=== PATIENT | female | born 1945 | race Caucasian/White ===

== ENCOUNTER 2023-11-27 10:19 | Outpatient (CLI) | payer MEDICARE, SELFPAY ==
[2023-11-27 18:24] LABS: Basophils Absolute Auto 0.1 K/mm3 (0.0-0.1); Basophils Percent Auto 0.9 % (0.2-1.2); Eosinophils Absolute Auto 0.3 K/mm3 (0-0.3); Eosinophils Percent Auto 4.3 % (0-4.4); Hematocrit 44.6 % (37.0-47.0); Hemoglobin 14.9 g/dL (12.0-15.0); Immature Granulocyte Absolute 0.02 K/mm3 (0.00-0.031); Immature Granulocyte Percent A 0.3 % (0-0.5); Lymphocytes Absolute Auto 2.26 K/mm3 (0.9-3.2); Lymphocytes Percent Auto 29.1 % (18.3-44.2); Mean Corpuscular HGB Conc 33.4 g/dl (32-36); Mean Corpuscular Hemoglobin 30.7 pg (26-34); Mean Corpuscular Volume 91.8 fl (80-100); Mean Platelet Volume 9.3 fl (7.4-10.4); Monocytes Absolute Auto 0.8 K/mm3 (0.1-0.6); Monocytes Percent Auto 10.3 % (2.6-8.5); Neutrophils Absolute Auto 4.3 K/mm3 (1.3-6.7); Neutrophils Percent Auto 55.1 % (45.5-73.1); Platelet Count Result 341 k/mm3 (150-375); Red Blood Count 4.86 M/mm3 (4.2-5.4); Red Cell Distribution Width 13.8 % (11.5-14.5); White Blood Count 7.8 K/mm3 (4.5-10.0)
[2023-11-27 19:07] LABS: Alanine Aminotransferase 10 U/L (6-35); Albumin Level 4.7 g/dL (3.5-5.1); Alkaline Phosphatase 118 U/L (38-126); Anion Gap 10 mmol/L (4-12); Aspartate Amino Transferase 50 U/L (14-36); Bilirubin,Total 0.5 mg/dL (0.2-1.3); Blood Urea Nitrogen 16 mg/dL (7-17); Calcium 9.3 mg/dL (8.4-10.2); Carbon Dioxide 26 mmol/L (22-30); Chloride 96 mmol/L (98-107); Cholesterol 155 mg/dL (0-200); Estimated Glomerular Filt Rate 48; Glucose 81 mg/dL (65-110); HDL Direct 47 mg/dL; Magnesium 2.1 mg/dL (1.6-2.3); Potassium 4.9 mmol/L (3.4-5.0); Sodium 132 mmol/L (137-145); Triglycerides 159 mg/dL (<150)
[2023-11-27 19:21] LABS: LDL Cholesterol Direct 60 mg/dL
[2023-11-27 20:11] LABS: Folic Acid 7.5 ng/mL (2.76->20)
== END 2023-11-27 10:20 | disposition home or self-care (01) ==
LOC: ANHBWCLAB 10:23
PROVIDERS: PCP Nurse Practitioner Adult Health; Visit Provider Nurse Practitioner Adult Health
DX: R25.1 Tremor, unspecified (principal); I10 Essential (primary) hypertension
CPT/HCPCS: 36415; 80053; 80061; 82607; 82746; 83735; 84443; 85025

== ENCOUNTER 2024-05-15 14:03 | Outpatient (CLI) | payer MEDICARE, SELFPAY ==
--- OUTSIDE RECORDS SUMMARY | 2024-05-15 15:01 | XMS_ITS | Encounter Summary ---
Author Organization [facility] Address [address] [place] [address] Phone Care Team Providers Care Radiation Protection Technician Name Role Phone Jesus Ricks MD Unavailable Reason for Visit * Reason Comments Medication Refill Encounter Details Date Type Department Care Team (Late st Contact Info) Description 04/17/2024 Refill [facility] [address] [place] [address] Molina Mccain MD [address] [place] [address] Medication Refill Social History Tobacco Use Types Packs/Day Years Used Date Smoking Tobacco: Every Day Cigarettes Smokeless Tobacco: Never Alcohol Use Standard Drinks/Week Comments Never 0 (1 standard drink = 0.6 oz pur e alcohol) Sexually Active Control Partners Comments Not Currently Comments No Sex and Gender Information Value Date Recorded Sex Assigned at Not on file Legal Sex Female 11:33 PM CDT Gender Identity Not on file Sexual Orientation Not on file documented as of this encounter Miscellaneous Notes * Telephone Encounter - Norma Rosa RN - 04/17/2024 3:44 PM CST PCP is no longer in this office. Pt has not been seen in over a year. No EFREM scheduled. No refills can be processed per lead provider. ING OPERATOR documented in this encounter Plan of Treatment Not on file documented as of this encounter Visit Diagnoses Diagnosis Hypothyroidism, unspecified type documented in this encounter Care Teams Radiation Protection Technician Relationship Specialty Start Date End Date Jesus Ricks MD [address] [place] [address] Consulting Physician Neurology 01/24/23 documented as of this encounter
--- OUTSIDE RECORDS SUMMARY | 2024-05-15 15:01 | XMS_ITS | Clinical Summary ---
Author Organization [facility] Address [address] [place] [id number] Care Team Providers Care Motor Winder Name Role Phone Unavailable Primary Care Provider Unavailabl e Social History Tobacco Use Types Packs/Day Years Used Date Smoking Tobacco: Never Assessed Comments Unknown Sex and Gender Information Value Date Recorded Sex Assigned at Not on file Legal Sex Female 7:52 PM CDT Gender Identity Not on file Sexual Orientation Not on file Plan of Treatment Health Maintenance Due Date Last Done Comments Hepatitis C 1962 DTaP, Tdap and Td Vaccines ( 1 - Tdap) 10/26/1963 Zoster Vaccines (1 of 2) 1994 Dexa Scan (General) 2009 Pneumococcal Vaccine: 65+ Ye ars (1 of 1 - PCV) 2009 RSV Immunization or 60+ Years (1 - 1-dose 75+ series) 10/26/2019 COVID-19 Vaccine (2023-2 5 season) 2023 Influenza Adult (#1) 2024 Meningococcal B Vaccine Aged Out No l onger eligible based on patient's age to complete this topic Meningococcal Vaccine Aged Out No chantale kobe eligible based on patient's age to complete this topic RSV Immunizations Under 20 Months Aged Out No longer eligible based on patient's age to complete this topic
--- OUTSIDE RECORDS SUMMARY | 2024-05-15 15:01 | XMS_ITS | Encounter Summary ---
Author Organization [facility] Address [address] [facility] [place] [address] Phone Care Team Providers Care Signals Officer Name Role Phone Molina Mccain MD Primary Care Provider [phone] Jesus Ricks MD Unavailable [phone] Reason for Visit * Reason Comments Medication Refill Encounter Details Date Type Department Care Team (Late st Contact Info) Description 01/12/2024 Refill [facility] [address] [place] [address] Molina Mccain MD [address] [place] [address] Medication Refill Social History Tobacco Use Types [...] Telephone Encounter - Norma Rosa RN - 01/12/2024 2:32 PM CDT Should have refill on file and patient needs OV documented in this encounter Plan of Treatment Not on file documented as of this encounter Visit Diagnoses Diagnosis Hypothyroidism, unspecified type documented in this encounter Care Teams Signals Officer Relationship Specialty Start Date End Date Molina Mccain MD [address] [place] [address] PCP - General Family Medicine 08/08/22 04/16/24 Jesus Ricks MD [address] [place] [address] Consulting Physician Neurology 01/24/23 documented as of this encounter
--- OUTSIDE RECORDS SUMMARY | 2024-05-15 15:01 | XMS_ITS | Clinical Summary ---
Author Organization [facility] Address [address] [address] Phone Care Team Providers Care Director Of Casework Name Role Phone Jesus Ricks MD Unavailable [phone] Allergies Active Allergy Reactions Criticality Noted Date Comments Sulfamethoxazole-Trimethoprim Nausea Low 2017 Medications fluticasone-salmet fito (ADVAIR) 250-50 MCG/ACT AEROSOL POWDER, BREATH ACTIVATEDIndicatio ns:Chronic obstructive pulmonary disease, unspecified COPD type (HCC) inhale 1 puff by inhalation route 2 times every day in the morning and evening approximately 12 hours apart 10/03/19 14 Active tiotropium (SPIRIVA) 18 MCG CapsuleIndications :Chronic obstructive pulmonary disease, unspecified COPD type (HCC) take 1 Puff by inhalation daily. 90 Capsule 3 08/09/19 23 Active carbidopa-levodopa (SINEMET) 25-250 MG TabletIndications: Parkinson's disease (HCC) TAKE 1 TABLET BY MOUTH 3 TIMES DAILY. 90 Tablet 1 10/01/19 23 Active amLODIPine (NORVASC) 5 MG TabletIndications: Primary hypertension TAKE 1 TABLET (5 MG TOTAL) BY MOUTH DAILY 30 Tablet 11 02/29/20 23 Active losartan (COZAAR) 50 MG TabletIndications: Primary hypertension TAKE 1 TABLET EVERY DAY BY ORAL ROUTE. 90 Tablet 3 03/09/20 23 Active levothyroxine (SYNTHROID) 50 MCG TabletIndications: Hypothyroidism, unspecified type TAKE ONE (1) TABLET BY MOUTH EACH MORNING ON AN EMPTY STOMACH 90 Tablet 2 07/12/19 24 Active atorvastatin (LIPITOR) 10 MG TabletIndications: Hyperlipidemia, unspecified hyperlipidemia type TAKE ONE (1) TABLET BY MOUTH EVERY NIGHT AT BEDTIME 90 Tablet 1 07/13/19 24 Active Active Problems Problem Noted Date Diagnosed Date Hypothyroidism 08/09/2022 COPD (chronic obstructive pulmonary disease) 05/2022 CAD (coronary artery disease) 08/09/2022 Closed fracture of right hip 08/08/2022 Femur fracture, right 02/02/2021 Overview (08/08/2022): Last Assessment & Plan: S/p mechanical fall. CT right hip reported Subcapital right femoral neck fracture. Orthopedics consulted, patient planned for surgery today. Needs medical clearance. Pt has no h/o ischemic heart disease, CHF or CVA. EKG reviewed, no acute ST/T wave changes, or any Q waves noted. Creatinine is within normal limits. Pt is not on insulin. She has h/o COPD, and is currently in mild exacerbation. Per TAILINGS DAM LABORER score- patient has 4 points- she is at 0.1 % risk of perioperative mortality Per RCRI score- patient has 0 points, therefore has a class 1 risk- she has 3.9% chances of 30 day risk of major cardiovascular event defined as , MA or cardiac arrest. HTN (hypertension) 02/02/2021 Overview (08/08/2022): pt is claustrophobic; Comments: TAB 05/13/2014 - Last Assessment & Plan: Ct reported Infrarenal abdominal aortic aneurysm, measuring least 3.5 cm, incompletely imaged and evaluated. Nonemergent sonography or CT angiography follow-up is recommended. May be done as outpatient. Last Assessment & Plan: BP on the higher side possibly secondary to pain. On Losartan-HCTZ at home, currently held as pt is NPO. Initiated on iv Hydralazine prn. Pain control. Hyponatremia 02/02/2021 Overview (08/08/2022): Last Assessment & Plan: Na 125 on admission. Possibly secondary to hydrochlorothiazide. Currently held, and pt is started on IV NS @ 125 cc/hr. Monitor Na levels. Possibly dc HCTZ upon discharge. Parkinson's disease 05/14/2014 Overview (08/08/2022): Parkinson's disease Last Assessment & Plan: Continue home meds after surgery. Patient follows with Dr. Woodson and would like to see him while she is here. States she feels her tremors and leg pain are progressing. Will attempt to reach out to Dr. Woodson. Encounters Date Type Department Care Team Description 04/17/2024 Refill [facility] [address]2 [place] [address] Molina Mccain MD Medication Refill 03/02/2024 Refill [facility] [address] [place] [address] Molina Mccain MD Medication Refill from Last 3 Months Immunizations Immunization Administration Dates Next Due Influenza Vaccine,unspecifie d Formulation 01/27/2021 Influenza, High-dose, Quadrivalent 01/27/2021 Influenza, Quadrivalent, Adjuvanted 01/19/2023,1 ,01/23/2020 Influenza, Seasonal, Injecta ble, Undefined 01/30/2013 Influenza, high-dose, trivalent, PF 03/10,01/16/2018,02/24/2017,2015,02/26/2015 Pneumococcal Vaccine - 13 Valent 01/23/2020,02/08 Pneumococcal Vaccine Adult - 23 Valent 03/05/2013 RSV, Recombinant, Protein Lew bunit Rsvpref, Adjuvant Recon (Arexvy) 03/15/2023 Zoster, Unspecified Formulation 01/11/2012 Family History Medical History Relation Name Comments Cancer Father lung Hypertension Mother Relation Name Status Comments Father Mother Social History Tobacco Use Types Packs/Day Years Used Date Smoking Tobacco: Every Day Cigarettes Smokeless Tobacco: Never Tobacco Cessation:Ready to Q uit: Yes; Counseling Given: Yes Alcohol Use Standard Drinks/Week Comments Never 0 (1 standard drink = 0.6 oz pur e alcohol) Sexually Active Control Partners Comments Not Currently Comments No Sex and Gender Information Value Date Recorded Sex Assigned at Not on file Legal Sex Female 11:33 PM CDT Gender Identity Not on file Sexual Orientation Not on file Last Filed Vital Signs Vital Sign Reading Time Taken Comments Blood Pressure 120/72 12/15/2022 1:45 PM CDT Pulse 84 12/15/2022 1:45 PM CDT Temperature 36.9 C (98.4 F) 12/15/2022 1:45 PM CDT Respiratory Rate 16 12/15/2022 1:45 PM CDT Oxygen Saturation 99% 12/15/2022 1:45 PM CDT Inhaled Oxygen Concentration - - Weight 52.2 kg (115 lb) 12/15/2022 1:45 PM CDT Height 160 cm (5' 3 ) 12/15/2022 1:45 PM CDT Body Mass Index 20.37 12/15/2022 1:45 PM CDT Plan of Treatment Health Maintenance Due Date Last Done Comments DEXA Bone Density 1945 Hepatitis C Virus (HCV) Screening 1945 TdaP Immunization 1945 Zoster Immunization (1 of 2) 1994 01/11/2012 Influenza Immunization (#1) 12/10/202301/08, 01/26/2022, 01/27/2021, Additional history exists SARS-COV-2 Immunization ( season) 2023 01/19/2023, 01/21/2022, 08/09/2021, Additional history exists Pneumococcal Immunization (50+ years) Completed 01/23/2020, 02/26/2016, 03/05/2013 Pneumococcal Immunization Combined Discontinued 01/23/2020, 02/26/2016, 03/05/2013 Respiratory Syncytial Virus (RSV) Immunization (Adult) Completed 03/15/2023 Hepatitis B Immunization Aged Out No longer eligible based on patient's age to complete this topic Meningococcal Immunization (ACWY) Aged Out No longer eligible based on patient's age to complete this topic Rotavirus Immunization Aged Out No lo nger eligible based on patient's age to complete this topic Insurance MEDICARE [facility] [id number] Care Teams Director Of Casework Relationship Specialty Start Date End Date Jesus Ricks MD [address] [place] [address] Consulting Physician Neurology 01/24/23
--- OUTSIDE RECORDS SUMMARY | 2024-05-15 15:01 | XMS_ITS | Encounter Summary ---
Author Organization [facility] Address [address] [facility] [place] [address] Phone Care Team Providers Care Manager Servicing Name Role Phone Molina Mccain MD Primary Care Provider [phone] Jesus Ricks MD Unavailable [phone] Reason for Visit * Reason Comments Medication Refill Encounter Details Date Type Department Care Team (Late st Contact Info) Description 03/07/2023 Refill [facility] [address] [place] [address] Molina Mccain MD [address] [place] [address] Medication Refill Social History Tobacco Use Types [...] Miscellaneous Notes * Telephone Encounter - Norma Rosa, RN - 03/07/2023 2:16 PM CST NPT 08/08/22 - new Rx for PCP Per nursing clinical judgement, provider to review and approve the medication(s) order(s) if appropriate. Requested Prescriptions Pending Prescriptions Disp Refills losartan (COZAAR) 50 MG Tablet [Pharmacy Med Name: LOSARTAN POTASSIUM 50MG TABLET] 90 Tablet 3 Sig: TAKE 1 TABLET EVERY DAY BY ORAL ROUTE. ARB Protocol Passed - 03/07/2023 10:13 AM Passed - Serum potassium on record in past 12 months POTASSIUM Date Value Ref Range Status 08/24/2022 4.1 3.5 - 5.1 mmol/L Final Passed - BP on record in the past year Clinician-entered: BP Readings from Last 3 Encounters: 12/15/22 120/72 09/20/22 136/70 08/08/22 130/68 Patient-entered: No data recorded Passed - Visit with relevant provider in past year or upcoming 90 days Recent Visits Date Type Provider Dept 12/15/22 Office Visit Molina Mccain MD [facility] 08/08/22 Office Visit Molina Mccain MD [facility] Showing recent visits within past 365 days and meeting all other requirements Future Appointments Date Type Provider Dept 04/13/23 Appointment Molina Mccain MD [facility] Showing future appointments within next 90 days and meeting all other requirements Passed - GFR on record in past 12 months GFR, EST. NONAFRICAN Date Value Ref Range Status 08/24/2022 53 (L) >=60 Final ER documented in this encounter Plan of Treatment Not on file documented as of this encounter Visit Diagnoses Diagnosis Primary hypertension Unspecified essential hypertension documented in this encounter Care Teams Manager Servicing Relationship Specialty Start Date End Date Molina Mccain MD [address] [place] [address] PCP - General Family Medicine 08/08/22 04/16/24 Jesus Ricks MD [address] [place] [address] Consulting Physician Neurology 01/24/23 documented as of this encounter
--- OUTSIDE RECORDS SUMMARY | 2024-05-15 15:01 | XMS_ITS | Encounter Summary ---
Author Organization [facility] Address [address] [facility] [place] [address] Phone Care Team Providers Care Telesales Consultant Name Role Phone Molina Mccain MD Primary Care Provider [phone] Jesus Ricks MD Unavailable [phone] Reason for Visit * Reason Comments Medication Refill Encounter Details Date Type Department Care Team (Late st Contact Info) Description 01/19/2024 Refill [facility] [address]2 [place] [address] Molina Mccain MD [address] [place] [address] Medication Refill Social History Tobacco Use Types [...] encounter Miscellaneous Notes * Telephone Encounter - Nora Licea CMA - 01/22/2024 3:48 PM CDT Tried to call pt- call wouldn't go through. * Telephone Encounter - Chacha Trotter RN - 01/20/2024 2:53 PM CDT Needs OV. Per appt desk notes, patient cancelled Felipe visits on 09/27/23 and 10/24/23. documented in this encounter Plan of Treatment Not on file documented as of this encounter Visit Diagnoses Diagnosis Hyperlipidemia, unspecified hyperlipidemia type documented in this encounter Care Teams Telesales Consultant Relationship Specialty Start Date End Date Molina Mccain MD [address] [place] [address] PCP - General Family Medicine 08/08/22 04/16/24 Jesus Ricks MD [address] [place] [address] Consulting Physician Neurology 01/24/23 documented as of this encounter
--- OUTSIDE RECORDS SUMMARY | 2024-05-15 15:01 | XMS_ITS | Clinical Summary ---
Author Organization [facility] Address [address] [place] [address] Care Team Providers Care Vp Delivery Name Role Phone Shruthi Kendrick NP Primary Care Provider [phone] Ania Malik PA Unavailable Allergies Active Allergy Reactions Criticality Noted Date Comments Sulfamethoxazole-Trimethoprim Nausea only Low 10/30 Medications levothyroxine (LEVOTHROID) 50 mcg tablet take 1 tablet by oral route every day 0 0 4 Active atorvastatin (LIPITOR) 10 mg tablet take 1 tablet by oral route every day 0 0 4 Active fluticasone-sa lmeterol (ADVAIR DISKUS) 250-50 mcg/dose diskus inhaler inhale 1 puff by inhalation route 2 times every day in the morning and evening approximately 12 hours apart 0 0 4 Active carbidopa-levo dopa CR (SINEMET CR) 50-200 mg per CR tablet Take 2 tablets by mouth nightly 60 tablet 5 0 Active carbidopa-levo dopa (SINEMET) 25-250 mg per tablet Take 1 tablet by mouth 3 (three) times a day 90 tablet 5 0 Active amLODIPine (NORVASC) 5 mg tablet Take 1 tablet (5 mg total) by mouth daily 30 tablet 11 1 Active losartan (COZAAR) 50 mg tablet Take 1 tablet (50 mg total) by mouth daily 30 tablet 11 1 Active Active Problems Problem Noted Date Diagnosed Date Aftercare following surgery 03/18/2021 Femur fracture, right 02/02/2021 Assessment & Plan (02/02/2021 10:03 AM CDT): S/p mechanical fall. CT right hip reported [...] and is currently in mild exacerbation. Per ASSEMBLER FLEXIBLE LEADS score- patient has 4 points- she is at 0.1 % risk of perioperative mortality Per RCRI score- patient has 0 points, therefore has a class 1 risk- she has 3.9% chances of 30 day risk of major cardiovascular event defined as , [place] or cardiac arrest. COPD with exacerbation 02/02/2021 Assessment & Plan (02/02/2021 10:04 AM CDT): Patient smokes 1 PPD. C/o having productive cough and some wheezing. Denies SOB, comfortable on room air. Will treat with iv steroids as pt is NPO. Also started on Rocephin and duonebs. HTN (hypertension) 02/02/2021 Assessment & Plan (02/02/2021 10:05 AM CDT): BP on the higher side possibly secondary to pain. On Losartan-HCTZ at home, currently held as pt is NPO. Initiated on iv Hydralazine prn. Pain control. Hyponatremia 02/02/2021 Assessment & Plan (02/02/2021 10:06 AM CDT): Na 125 on admission. Possibly secondary to hydrochlorothiazide. Currently held, and pt is started on IV NS @ 125 cc/hr. Monitor Na levels. Possibly dc HCTZ upon discharge. UTI (urinary tract infection) 02/02/2021 Assessment & Plan (02/02/2021 10:07 AM CDT): UA strongly suggestive of UTI. Did have a fall. Possibly weak as well. Will treat with Rocephin. Follow urine culture. Fall 02/01/2021 Parkinson's disease (CMS/HCC) 05/14/2014 Overview (07/14/2016): Parkinson's disease Assessment & Plan (02/02/2021 10:10 AM CDT): Continue home meds after surgery. Patient follows with Dr. Woodson and would like to see him while she is here. States she feels her tremors and leg pain are progressing. Will attempt to reach out to Dr. Woodson. Abdominal aneurysm Overview (02/02/2021): pt is claustrophobic; Comments: TAB 05/13/2014 - Assessment & Plan (02/02/2021 6:05 PM CDT): Ct reported Infrarenal abdominal aortic aneurysm, measuring least 3.5 cm, incompletely imaged and evaluated. Nonemergent sonography or CT angiography follow-up is recommended. May be done as outpatient. Closed fracture of right hip Immunizations Name Administration Dates Next Due Influenza, Trivalent, High D ose, Split, Preservative Free, Intramuscular 03/20/2019,01/16/2018,02/24/2017,01/19,02/26/2015 Influenza, Unspecified 01/27/2021 Surgical History Surgery Date Site/Laterality Comments TOTAL ABDOMINAL HYSTERECTOMY Hysterectomy, total OTHER SURGICAL HISTORY cataracts removed from both eyes Medical History Medical History Date Comments Hypertension Hypertension Parkinson's disease (HCC) [place] son disease Hx Other Medical pt is claustrop hobic; Comments: TAB 05/13/2014 - Shingles Aneurysm of abdominal aorta (HCC) Family History Medical History Relation Name Comments Lung cancer Father Cancer, lung; Hypertension Mother Hypertension; Relation Name Status Comments Father Mother Social History Tobacco Use Types Packs/Day Years Used Date Smoking Tobacco: Every Day Cigarettes Smokeless Tobacco: Never Tobacco Cessation:Ready to Q uit: No; Counseling Given: No Alcohol Use Standard Drinks/Week Comments No 0 (1 standard drink = 0.6 oz pur e alcohol) Comments No Sex and Gender Information Value Date Recorded Sex Assigned at Not on file Legal Sex Female 11:19 PM RETIREMENT [employer]UARY Gender Identity Not on file Sexual Orientation Not on file Obstetrics History Last Filed Vital Signs Vital Sign Reading Time Taken Comments Blood Pressure 169/74 03/18/2021 1:24 PM RETIREMENT ACTUARY Pulse 76 03/18/2021 1:24 PM RETIREMENT ACTUARY Temperature 37.1 C (98.8 F) 02/05/2021 11:09 AM CDT Respiratory Rate 20 02/05/2021 11:09 AM CDT Oxygen Saturation 96% 02/05/2021 11:09 AM CDT Inhaled Oxygen Concentration - - Weight 53.5 kg (118 lb) 03/18/2021 1:24 PM RETIREMENT ACTUARY Height 165.1 cm (5' 5 ) 03/18/2021 1:24 PM RETIREMENT ACTUARY Body Mass Index 19.64 03/18/2021 1:24 PM RETIREMENT ACTUARY Plan of Treatment Not on file Medical Devices Implanted Type Area Psychiatric Security Nurse Device Identifier Shelf Expiration Date Model / Serial / Lot [employer] [id number] Self-Centering 45mm 28mm Hip Femur Head Bipolar Sterile Camarena - [id number] Implanted:Qty: 1 on 02/02/2021 by Vladislav Oneil MD at [facility] Right: Hip [employer] 09/07/2025 [id number] / / [id number] [employer] [id number] Actis Collared Hip /14 6 Standard Offset Stem Femoral - [id number] Implanted:Qty: 1 on 02/02/2021 by Vladislav Oneil MD at [facility] Right: Hip [employer] 11/07/2030 [id number] / / [id number] [employer] 1365-12-000 Articul/Wing 28mm Hip +5mm 12/14 Taper Head Femoral Cocr Sterile Latex Free - [id number] Implanted:Qty: 1 on 02/02/2021 by Vladislav Oneil MD at [facility] Right: Hip [employer] 11/07/2025 1365-12-000 / / [id number] Insurance MEDICARE SOL[employer]IONS [facility] MEDICARE Address: [address] [address] [place] [address] [facility] PPO Advance Directives For more information, please contact: [phone] * Full Code (Latest Code Status on File) Date Activated Date Inactivated Comments 02/02/2021 9:35 AM 02/05/2021 7:11 PM * Full Code Date Activated Date Inactivated Comments 02/02/2021 9:35 AM 02/02/2021 9:35 AM Care Teams Vp Delivery Relationship Specialty Start Date End Date Shruthi Kendrick NP PCP - General Nurse Practitioner 10/30/17 Ania Malik PA [address] [place] [address] [address] [place] [address] Physician Shop Teacher Orthopedic Surgery 02/05/21
--- OUTSIDE RECORDS SUMMARY | 2024-05-15 15:01 | XMS_ITS | Encounter Summary ---
Author Organization [facility] Address [address] [facility] [place] [address] Phone Care Team Providers Care Principal Scientist Name Role Phone Molina Mccain MD Primary Care Provider [phone] Jesus Ricks MD Unavailable [phone] Reason for Visit * Reason Comments Medication Refill Encounter Details Date Type Department Care Team (Late st Contact Info) Description 10/20/2022 Refill [facility] [address] [place] [address] Molina Mccain MD [address] [place] [address] Medication Refill Social History Tobacco Use Types [...] on file Sexual Orientation Not on file COVID-19 Exposure Response Date Recorded In the last 10 days, have yo u been in contact with someone who was confirmed or suspected to have Coronavirus/COVID-19? No / Unsure 09/20/2022 10:20 AM CDT documented as of this encounter Miscellaneous Notes * Telephone Encounter - Norma Rosa RN - 10/20/2022 2:00 PM CDT NPT 08/08/22 - New Rx's for PCP Per nursing clinical judgement, provider to review and approve the medication(s) order(s) if appropriate. Requested Prescriptions Pending Prescriptions Disp Refills levothyroxine (SYNTHROID) 50 MCG Tablet [Pharmacy Med Name: LEVOTHYROXINE SODIUM 50MCG TABLET] 90 Tablet 2 Sig: TAKE ONE (1) TABLET BY MOUTH EACH MORNING ON AN EMPTY STOMACH Thyroid Hormones Protocol Passed - 10/20/2022 9:02 AM Passed - Visit with relevant provider in past 12 months or upcoming 90 days Recent Visits Date Type Provider Dept 08/08/22 Office Visit Molina Mccain MD [facility] Showing recent visits within past 365 days and meeting all other requirements Future Appointments Date Type Provider Dept 12/15/22 Appointment Molina Mccain MD [facility] Showing future appointments within next 90 days and meeting all other requirements Passed - Normal TSH in past 12 months TSH Date Value Ref Range Status 08/24/2022 3.020 0.270 - 4.200 mIU/L Final atorvastatin (LIPITOR) 10 MG Tablet [Pharmacy Med Name: ATORVASTATIN CALCIUM 10MG TABLET] 90 Tablet2 Sig: TAKE ONE (1) TABLET BY MOUTH EVERY NIGHT AT BEDTIME Hmg CoA Reductase Inhibitors Protocol Passed - 10/20/2022 9:02 AM Passed - Visit with relevant provider in past 12 months or upcoming 90 days Recent Visits Date Type Provider Dept 08/08/22 Office Visit Molina Mccain MD [facility] Showing recent visits within past 365 days and meeting all other requirements Future Appointments Date Type Provider Dept 12/15/22 Appointment Molina Mccain MD [facility] Showing future appointments within next 90 days and meeting all other requirements Passed - Lipid panel in past 12 months LDL Date Value Ref Range Status 08/24/2022 74 5 - 130 mg/dL Final HDL CHOLESTEROL Date Value Ref Range Status 08/24/2022 44.5 >40 mg/dL Final CHOLESTEROL Date Value Ref Range Status 08/24/2022 136 <=200 mg/dL Final TRIGLYCERIDES Date Value Ref Range Status 08/24/2022 90 <150 mg/dL Final VLDL Date Value Ref Range Status 08/24/2022 18 5 - 55 mg/dL Final CHOL/HDL RATIO Date Value Ref Range Status 08/24/2022 3.1 0.0 - 4.4 Final NON-HDL CHOLESTEROL Date Value Ref Range Status 08/24/2022 91.5 <130 mg/dL Final Passed - CMP in past 12 months SODIUM Date Value Ref Range Status 08/24/2022 131 (L) 136 - 144 mmol/L Final POTASSIUM Date Value Ref Range Status 08/24/2022 4.1 3.5 - 5.1 mmol/L Final CHLORIDE Date Value Ref Range Status 08/24/2022 93 (L) 100 - 110 mmol/L Final CO2, VENOUS Date Value Ref Range Status 08/24/2022 27 22 - 32 mmol/L Final ANION GAP Date Value Ref Range Status 08/24/2022 15.1 8.0 - 20.0 mmol/L Final GLUCOSE Date Value Ref Range Status 08/24/2022 97 70 - 99 mg/dL Final BUN Date Value Ref Range Status 08/24/2022 14 8 - 23 mg/dL Final CREATININE, BLOOD Date Value Ref Range Status 08/24/2022 1.02 0.60 - 1.10 mg/dL Final BUN/CREATININE RATIO Date Value Ref Range Status 08/24/2022 14 12 - 20 ratio Final TOTAL PROTEIN Date Value Ref Range Status 08/24/2022 8.0 6.0 - 8.3 g/dL Final ALBUMIN Date Value Ref Range Status 08/24/2022 4.1 3.5 - 5.2 g/dL Final Comment: The colormetric methods used for the determination of Albumin may lead to falsely elevated test results in patients suffering from renal failure or insufficiency due to interference with other proteins. A/G RATIO Date Value Ref Range Status 08/24/2022 1.1 1.0 - 2.0 Final CALCIUM Date Value Ref Range Status 08/24/2022 9.5 8.9 - 10.3 mg/dL Final T BILI Date Value Ref Range Status 08/24/2022 0.4 <=1.2 mg/dL Final SGOT (AST) Date Value Ref Range Status 08/24/2022 17 <=32 U/L Final SGPT (ALT) Date Value Ref Range Status 08/24/2022 5 <=41 U/L Final ALKALINE PHOSPHATASE Date Value Ref Range Status 08/24/2022 125 (H) 35 - 105 U/L Final GFR, EST. NONAFRICAN Date Value Ref Range Status 08/24/2022 53 (L) >=60 Final GFR, EST. Date Value Ref Range Status 08/24/2022 >60 >=60 Final GFR, ESTIMATED Date Value Ref Range Status 08/24/2022 57 (L) >=60 Final Comment: Creatinine Clearance is the preferred criteria for selecting drug dose adjustments in renally impaired patients. The GFR is provided as additional pertinent clinical information. GFR is reported in mL/min/1.73 sq m. Calculation based on the Chronic Kidney Disease Epidemiology Collaboration (CKD- EPI) equation refitwithout adjustment for race. IS THE PATIENT REQUIRED TO BE FASTING? Date Value Ref Range Status 08/24/2022 No Final documented in this encounter Plan of Treatment Not on file documented as of this encounter Visit Diagnoses Diagnosis Hypothyroidism, unspecified type Hyperlipidemia, unspecified hyperlipidemia type documented in this encounter Care Teams Principal Scientist Relationship Specialty Start Date End Date Molina Mccain MD [address] [place] [address] PCP - General Family Medicine 08/08/22 04/16/24 Jesus Ricks MD [address] [place] [address] Consulting Physician Neurology 01/24/23 documented as of this encounter
--- OUTSIDE RECORDS SUMMARY | 2024-05-15 15:01 | XMS_ITS | Encounter Summary ---
Author Organization [facility] Address [address] [facility] [address] Phone Care Team Providers Care Residential Insurance Inspector Name Role Phone Molina Mccain MD Primary Care Provider [phone] Jesus Ricks MD Unavailable [phone] Reason for Visit * Reason Comments Medication Refill Encounter Details Date Type Department Care Team (Late st Contact Info) Description 02/27/2023 Refill [facility] [address] [place] [address] Molina Mccain MD [address] [place] [address] Medication Refill Social History Tobacco Use Types [...] Telephone Encounter - Norma Rosa, RN - 02/27/2023 3:58 PM CST Per nursing clinical judgement, provider to review and approve the medication(s) order(s) if appropriate. Requested Prescriptions Pending Prescriptions Disp Refills amLODIPine (NORVASC) 5 MG Tablet [Pharmacy Med Name: AMLODIPINE BESYLATE 5MG TABLET] 30 Tablet 11 Sig: TAKE 1 TABLET (5 MG TOTAL) BY MOUTH DAILY Calcium-Channel Blockers Protocol Passed - 02/27/2023 10:56 AM Passed - BP on record in the [...] 90 days and meeting all other requirements L CHIPPER documented in this encounter Plan of Treatment Not on file documented as of this encounter Visit Diagnoses Diagnosis Primary hypertension Unspecified essential hypertension documented in this encounter Care Teams Residential Insurance Inspector Relationship Specialty Start Date End Date Molina Mccain MD [address] [place] [address] PCP - General Family Medicine 08/08/22 04/16/24 Jesus Ricks MD [address] [place] [address] Consulting Physician Neurology 01/24/23 documented as of this encounter
--- OUTSIDE RECORDS SUMMARY | 2024-05-15 15:01 | XMS_ITS | Encounter Summary ---
Author Organization [facility] Address [address] [facility] [place] [address] Phone Care Team Providers Care Rubber Calender Helper Name Role Phone Molina Mccain MD Primary Care Provider [phone] Jesus Ricks MD Unavailable [phone] Reason for Visit * Reason Comments Medication Refill Encounter Details Date Type Department Care Team (Late st Contact Info) Description 07/13/2023 Refill [facility] [address] [place] [address] Molina Mccain MD [address] [place] [address] Medication Refill Social History Tobacco Use Types [...] Telephone Encounter - Norma Rosa, RN - 07/13/2023 11:40 AM CDT Medication(s) refilled and signed per [facility] Chronic Medication Refill Standing Order for Pediatricand Adult Patients. Requested Prescriptions Pending Prescriptions Disp Refills atorvastatin (LIPITOR) 10 MG Tablet [Pharmacy Med Name: ATORVASTATIN CALCIUM 10MG TABLET] 90 Tablet1 Sig: TAKE ONE (1) TABLET BY MOUTH EVERY NIGHT AT BEDTIME Hmg CoA Reductase Inhibitors Protocol Passed - 07/13/2023 9:51 AM Passed - Visit with relevant provider in past 12 months or upcoming 90 days Recent Visits Date Type Provider Dept 12/15/22 Office Visit Molina Mccain MD [facility] 08/08/22 Office Visit Molina Mccain MD [facility] Showing recent visits within past 365 days and meeting all other requirements Future Appointments Date Type Provider Dept 08/24/23 Appointment Molina Mccain MD [facility] Showing [...] type documented in this encounter Care Teams Rubber Calender Helper Relationship Specialty Start Date End Date Molina Mccain MD [address] [place] [address] PCP - General Family Medicine 08/08/22 04/16/24 Jesus Ricks MD [address] [place] [address] Consulting Physician Neurology 01/24/23 documented as of this encounter
--- OUTSIDE RECORDS SUMMARY | 2024-05-15 15:02 | XMS_ITS | Referral Summary ---
Author Organization [facility] Address [address] [place] [address] Care Team Providers Care Geothermal Technician Name Role Phone Shruthi Kendrick NP Primary Care Provider Ania Malik PA Unavailable Allergies Active Allergy [...] and is currently in mild exacerbation. Per CENSUS ENUMERATOR score- patient has 4 points- she is at 0.1 % risk of perioperative mortality Per RCRI score- patient has 0 points, therefore has a class 1 risk- she has 3.9% chances of 30 day risk of major cardiovascular event defined as , [place] or cardiac arrest. COPD with exacerbation 02/02/2021 [...] Follow urine culture. Fall 02/01/2021 Parkinson's disease ([facility]) 05/14/2014 Overview (07/14/2016): Parkinson's disease Assessment & [...] Preservative Free, Intramuscular 03/20/2019,01/16/2018,02/24/2017,01/19,02/26/2015 Influenza, Unspecified 01/27/2021 Social History Tobacco Use Types Packs/Day Years Used Date Smoking Tobacco: Every Day Cigarettes Smokeless Tobacco: Never Tobacco Cessation:Ready to Q uit: No; Counseling Given: No Alcohol Use Standard Drinks/Week Comments No 0 (1 standard drink = 0.6 oz pur e alcohol) Comments No Sex and Gender Information Value Date Recorded Sex Assigned at Not on file Legal Sex Female 11:19 PM GIN OPERATOR Gender Identity Not on file Sexual Orientation Not on file Last Filed Vital Signs Vital Sign Reading Time Taken Comments Blood Pressure 169/74 03/18/2021 1:24 PM GIN OPERATOR Pulse 76 03/18/2021 1:24 PM GIN OPERATOR Temperature 37.1 C (98.8 F) 02/05/2021 11:09 AM CDT Respiratory Rate 20 02/05/2021 11:09 AM CDT Oxygen Saturation 96% 02/05/2021 11:09 AM CDT Inhaled Oxygen Concentration - - Weight 53.5 kg (118 lb) 03/18/2021 1:24 PM GIN OPERATOR Height 165.1 cm (5' 5 ) 03/18/2021 1:24 PM GIN OPERATOR Body Mass Index 19.64 03/18/2021 1:24 PM GIN OPERATOR Plan of Treatment Not on file Medical Devices Implanted Type Area Patient Access Coordinator Device Identifier Shelf Expiration Date Model / Serial / Lot [employer] [id number] Self-Centering 45mm 28mm Hip Femur Head Bipolar Sterile Camarena - [id number] Implanted:Qty: 1 on 02/02/2021 by Vladislav Oneil MD at [facility] Right: Hip [employer] 09/07/2025 [id number] / / [id number] Dep[employer] [id number] Actis Collared Hip /14 6 Standard Offset Stem Femoral - [id number] Implanted:Qty: 1 on 02/02/2021 by Vladislav Oneil MD at [facility] Right: Hip [employer] 11/07/2030 [id number] / / [id number] [employer] 1365-12-000 Articul/Wing 28mm Hip +5mm /14 Taper Head Femoral Cocr Sterile Latex Free - [id number] Implanted:Qty: 1 on 02/02/2021 by Vladislav Oneil MD at [facility] Right: Hip [employer] 11/07/2025 1365-12-000 / / [id number] Insurance MEDICARE [employer] [facility] Advance Directives For more information, please contact: [phone] * Full Code (Latest Code Status on File) Date Activated Date Inactivated Comments 02/02/2021 9:35 AM 02/05/2021 7:11 PM * Full Code Date Activated Date Inactivated Comments 02/02/2021 9:35 AM 02/02/2021 9:35 AM Care Teams Geothermal Technician Relationship Specialty Start Date End Date Shruthi Kendrick NP PCP - General Nurse Practitioner 10/30/17 Ania Malik PA [address] [place] [address] Physician Associate Professor Of Communication Orthopedic Surgery 02/05/21
[2024-05-15 18:35] LABS: Anion Gap 15 mmol/L (4-12); Blood Urea Nitrogen 15 mg/dL (7-17); Calcium 9.7 mg/dL (8.4-10.2); Carbon Dioxide 25 mmol/L (22-30); Chloride 96 mmol/L (98-107); Estimated Glomerular Filt Rate 49; Glucose 95 mg/dL (65-110); Potassium 4.6 mmol/L (3.4-5.0); Sodium 136 mmol/L (137-145)
== END 2024-05-15 14:04 | disposition home or self-care (01) ==
PROVIDERS: PCP Nurse Practitioner Adult Health; Visit Provider Nurse Practitioner Adult Health
DX: I10 Essential (primary) hypertension (principal); G20.A1 Parkinson's disease without dyskinesia, without mention of fluctuations
CPT/HCPCS: 36415; 80048; 84443

== ENCOUNTER 2024-11-11 14:17 | Outpatient (CLI) | payer MEDICARE, SELFPAY ==
--- OUTSIDE RECORDS SUMMARY | 2024-11-11 14:31 | XMS_ITS | Encounter Summary ---
Author Organization [facility] Address [address] [facility] [address] Phone Care Team Providers Care Home Assessment Nurse Name Role Phone Molina Mccain MD Primary Care Provider [phone] Jesus Ricks MD Unavailable [phone] Provider, None Primary Care Provider Unavailabl e Reason for Visit * Reason Comments Medication Refill Encounter Details Date Type Department Care Team (Late st Contact Info) Description 03/07/2023 Refill [facility] Medicine - [address] [place] [address] Molina Mccain MD [address] [place] [address] Medication Refill Social History Tobacco Use Types [...] Telephone Encounter - Norma Rosa RN - 03/07/2023 2:16 PM CST NPT [...] Range Status 08/24/2022 53 (L) >=60 Final EL CONTRACTOR documented in this encounter Plan of Treatment Upcoming Encounters Date Type Department Care Team (Late st Contact Info) Description 04/15/2025 2:00 PM PARCEL CONTRACTOR Office Visit [facility] [address] [facility] [address] Jesus Ricks MD [address] [place] [address] documented as of this encounter Visit Diagnoses Diagnosis Primary hypertension Unspecified essential hypertension documented in this encounter Care Teams Home Assessment Nurse Relationship Specialty Start Date End Date Molina Mccain MD [address] [place] [address] PCP - General Family Medicine 08/08/22 04/16/24 Provider, None [place] PCP - General 10/29/24 Jesus Ricks MD [address] [place] [address] Consulting Physician Neurology 01/24/23 documented as of this encounter
--- OUTSIDE RECORDS SUMMARY | 2024-11-11 14:31 | XMS_ITS | Clinical Summary ---
Author Organization [facility] Address [address] [place] [address] Care Team Providers Care Rail Car Mechanic Name Role Phone Shruthi Kendrick NP Primary Care Provider [phone] Ania Malik PA Unavailable [phone] Allergies Active Allergy Reactions Criticality Noted Date [...] and is currently in mild exacerbation. Per RN PICU score- patient has 4 points- she is at 0.1 % risk of perioperative mortality Per RCRI score- patient has 0 points, therefore has a class 1 risk- she has 3.9% chances of 30 day risk of major cardiovascular event defined as , [place] or cardiac arrest. COPD with exacerbation 02/02/2021 [...] outpatient. Closed fracture of right hip Immunizations Immunization Administration Dates Next Due Influenza, Trivalent, High D ose, Split, Preservative Free, Intramuscular 03/20/2019,01/16/2018,02/24/2017,01/19,02/26/2015 Influenza, Unspecified 01/27/2021 Surgical History Surgery Date Site/Laterality Comments TOTAL ABDOMINAL HYSTERECTOMY Hysterectomy, total OTHER SURGICAL HISTORY cataracts removed from both eyes Medical History Medical History Date Comments Hypertension Hypertension Parkinson's disease (HCC) [place] son disease Hx Other Medical pt is claustrop hobic; Comments: TAB 05/13/2014 - Shingles Aneurysm of abdominal aorta Family History Medical History Relation Name Comments [...] on file Legal Sex Female 11:19 PM INTERNETWORKING TECHNICIAN Gender Identity Not on file Sexual Orientation Not on file Obstetrics History Last Filed Vital Signs Vital Sign Reading Time Taken Comments Blood Pressure 169/74 03/18/2021 1:24 PM INTERNETWORKING TECHNICIAN Pulse 76 03/18/2021 1:24 PM INTERNETWORKING TECHNICIAN Temperature 37.1 C (98.8 F) 02/05/2021 11:09 AM CDT Respiratory Rate 20 02/05/2021 11:09 AM CDT Oxygen Saturation 96% 02/05/2021 11:09 AM CDT Inhaled Oxygen Concentration - - Weight 53.5 kg (118 lb) 03/18/2021 1:24 PM INTERNETWORKING TECHNICIAN Height 165.1 cm (5' 5) 03/18/2021 1:24 PM INTERNETWORKING TECHNICIAN Body Mass Index 19.64 03/18/2021 1:24 PM INTERNETWORKING TECHNICIAN Plan of Treatment Not on file Medical Devices Implanted Type Area Pharmacy Analyst Device Identifier Shelf Expiration Date Model / Serial / Lot [employer]uy [employer] [id number] Self-Centering 45mm 28mm Hip Femur Head Bipolar Sterile Camarena - [id number] Implanted:Qty: 1 on 02/02/2021 by Vladislav Oneil MD at [facility] Right: Hip [employer] 09/07/2025 [id number] / / [id number] [employer] [id number] Actis Collared Hip /14 6 Standard Offset Stem Femoral - [id number] Implanted:Qty: 1 on 02/02/2021 by Vladislav Oneil MD at [facility] Right: Hip [employer] 11/07/2030 [id number] / / [id number] [employer] 1365-12-000 Articul/Wing 28mm Hip +5mm /14 Taper Head Femoral Cocr Sterile Latex Free - [id number] Implanted:Qty: 1 on 02/02/2021 by Vladislav Oneil MD at [facility] Right: Hip [employer] 11/07/2025 1365-12-000 / / [id number] Insurance [facility] MEDICARE ADVANTAGE MEDICARE [facility] PPO Advance Directives For more information, please contact: [phone] * Full Code (Latest Code Status on File) Date Activated Date Inactivated Comments 02/02/2021 9:35 AM 02/05/2021 7:11 PM * Full Code Date Activated Date Inactivated Comments 02/02/2021 9:35 AM 02/02/2021 9:35 AM Care Teams Rail Car Mechanic Relationship Specialty Start Date End Date Shruthi Kendrick NP PCP - General Nurse Practitioner 10/30/17 Ania Malik PA [address] [place] [address] [address] [place] [address] Physician [place] Pumper Orthopedic Surgery 02/05/21
--- OUTSIDE RECORDS SUMMARY | 2024-11-11 14:31 | XMS_ITS | Clinical Summary ---
Author Organization [facility] Address [address] [place] [address] Care Team Providers Care Spa Consultant Name Role Phone Unavailable Primary Care Provider Unavailabl e Social History Tobacco Use Types Packs/Day Years Used Date Smoking Tobacco: Never Assessed Comments Unknown Sex and Gender Information Value Date Recorded Sex Assigned at Not on file Legal Sex Female 7:52 PM CDT Gender Identity Not on file Sexual Orientation Not on file Plan of Treatment Health Maintenance Due Date Last Done Comments DTaP, Tdap and Td Vaccines ( 1 - Tdap) 10/26/1963 Pneumococcal Vaccine: 50+ Ye ars (1 of 1 - PCV) 1994 Zoster Vaccines (1 of 2) 1994 Dexa Scan (General) 2009 RSV Immunization or 60+ Years (1 - 1-dose 75+ series) 10/26/2019 COVID-19 Vaccine (2023-2 5 season) 2023 Meningococcal B Vaccine Aged Out No l onger eligible based on patient's age to complete this topic Meningococcal Vaccine Aged Out No chantale kobe eligible based on patient's age to complete this topic RSV Immunizations Under 20 Months Aged Out No longer eligible based on patient's age to complete this topic
--- OUTSIDE RECORDS SUMMARY | 2024-11-11 14:31 | XMS_ITS | Encounter Summary ---
Author Organization [facility] Address [address] [facility] [place] [address] Phone Care Team Providers Care Plier Worker Name Role Phone Jesus Ricks MD Unavailable [phone] Provider, None Primary Care Provider Unavailabl e Reason for Visit * Reason Comments Medication Refill Encounter Details Date Type Department Care Team (Late st Contact Info) Description 04/17/2024 Refill [facility] [address] [place] [address] Molina Mccain MD [address] [place] [address] Medication Refill Social History Tobacco Use Types [...] refills can be processed per lead provider. OR NETWORK ARCHITECT documented in this encounter Plan of Treatment Upcoming Encounters Date Type Department Care Team (Late st Contact Info) Description 04/15/2025 2:00 PM SENIOR NETWORK ARCHITECT Office Visit [facility] - Neurology [facility] [address] [place] [address] Jesus Ricks MD [address] [place] [address] documented as of this encounter Visit Diagnoses Diagnosis Hypothyroidism, unspecified type documented in this encounter Care Teams Plier Worker Relationship Specialty Start Date End Date Provider, None [place] PCP - General 10/29/24 Jesus Ricks MD [address] [place] [address] Consulting Physician Neurology 01/24/23 documented as of this encounter
--- OUTSIDE RECORDS SUMMARY | 2024-11-11 14:31 | XMS_ITS | Encounter Summary ---
Author Organization [facility] Address [address] [place] [address] Phone Care Team Providers Care Award Machine Operator Name Role Phone Molina Mccain MD Primary Care Provider [phone] Jesus Ricks MD Unavailable [phone] Provider, None Primary Care Provider Unavailabl e Reason for Visit * Reason Comments Medication Refill Encounter Details Date Type Department Care Team (Late st Contact Info) Description 01/12/2024 Refill [facility] [address] [place] [address] Molina Mccain MD [address] [place] [address] Medication Refill Social History Tobacco Use Types [...] st Contact Info) Description 04/15/2025 2:00 PM METHOD CONSULTANT Office Visit [facility] - Neurology [facility] [address] [place] [address] Jesus Ricks MD [address] [place] [address] documented as of this encounter Visit Diagnoses Diagnosis Hypothyroidism, unspecified type documented in this encounter Care Teams Award Machine Operator Relationship Specialty Start Date End Date Molina Mccain MD [address] [place] [address] PCP - General Family Medicine 08/08/22 04/16/24 Provider, None [place] PCP - General 10/29/24 Jesus Ricks MD [address] [place] [address] Consulting Physician Neurology 01/24/23 documented as of this encounter
--- OUTSIDE RECORDS SUMMARY | 2024-11-11 14:31 | XMS_ITS | Encounter Summary ---
Author Organization [facility] Address [address] [place] [address] Phone Care Team Providers Care Correspondence Transcriber Name Role Phone Molina Mccain MD Primary Care Provider Jesus Ricks MD Unavailable [phone] Provider, None Primary Care Provider Unavailabl e Reason for Visit * Reason Comments Medication Refill Encounter Details Date Type Department Care Team (Late st Contact Info) Description 10/20/2022 Refill [facility] [address] [place] [address] Molina Mccain MD [address] [place] [address] Medication Refill Social History Tobacco Use Types [...] st Contact Info) Description 04/15/2025 2:00 PM STONE BANKER Office Visit [facility] - Neurology [facility] [address] [place] [address] Jesus Ricks MD [address] [place] [address] documented as of this encounter Visit Diagnoses Diagnosis Hypothyroidism, unspecified type Hyperlipidemia, unspecified hyperlipidemia type documented in this encounter Care Teams Correspondence Transcriber Relationship Specialty Start Date End Date Molina Mccain MD [address] [place] [address] PCP - General Family Medicine 08/08/22 04/16/24 Provider, None [place] PCP - General 10/29/24 Jesus Ricks MD [address] [place] [address] Consulting Physician Neurology 01/24/23 documented as of this encounter
--- OUTSIDE RECORDS SUMMARY | 2024-11-11 14:31 | XMS_ITS | Encounter Summary ---
Author Organization [facility] Address [address] [facility] [place] [address] Phone Care Team Providers Care Senior Integration Developer Name Role Phone Molina Mccain MD Primary Care Provider Jesus Ricks MD Unavailable Provider, None Primary Care Provider Unavailabl e Reason for Visit * Reason Comments Medication Refill Encounter Details Date Type Department Care Team (Late st Contact Info) Description 02/27/2023 [facility]ill [facility] - [place] [address] [place] [address] Molina Mccain MD [address] [place] [address] Medication Refill Social History Tobacco Use Types [...] Telephone Encounter - Norma Rosa RN - 02/27/2023 3:58 PM CST Per [...] [place] 08/08/22 Office Visit Molina Mccain MD [facility] [place] Showing recent visits within past 365 days and meeting all other requirements Future Appointments Date Type Provider Dept 04/13/23 Appointment Molina Mccain MD [facility] [place] Showing future appointments within next 90 days and meeting all other requirements UCTION POSTING CLERK documented in this encounter Plan of Treatment Upcoming Encounters Date Type Department Care Team (Late st Contact Info) Description 04/15/2025 2:00 PM PRODUCTION POSTING CLERK Office Visit [facility] - Neurology [facility] [address] [place] [address] Jesus Ricks MD [address] [place] [address] documented as of this encounter Visit Diagnoses Diagnosis Primary hypertension Unspecified essential hypertension documented in this encounter Care Teams Senior Integration Developer Relationship Specialty Start Date End Date Molina Mccain MD [address] [place] [address] PCP - General Family Medicine 08/08/22 04/16/24 Provider, None [place] PCP - General 10/29/24 Jesus Ricks MD [address] [place] [address] Consulting Physician Neurology 01/24/23 documented as of this encounter
--- OUTSIDE RECORDS SUMMARY | 2024-11-11 14:31 | XMS_ITS | Clinical Summary ---
Author Organization [facility] Address [address] [address] Phone Care Team Providers Care Behavioral Sciences Department Chair Name Role Phone Jesus Ricks MD Unavailable [phone] Provider, None Primary Care Provider Unavailabl e Allergies Active Allergy Reactions Criticality Noted Date Comments Sulfamethoxazole-Trimethoprim Nausea Low 2017 Medications fluticasone-salme terol (ADVAIR) 250-50 MCG/ACT AEROSOL POWDER, BREATH ACTIVATEDIndicati ons:Chronic obstructive pulmonary disease, unspecified COPD type (HCC) inhale 1 puff by inhalation route 2 times every day in the morning and evening approximately 12 hours apart 10/03/19 14 Active amLODIPine (NORVASC) 5 MG TabletIndications :Primary hypertension TAKE 1 TABLET (5 MG TOTAL) BY MOUTH DAILY 30 Tablet 11 02/29/20 23 Active losartan (COZAAR) 50 MG TabletIndications :Primary hypertension TAKE 1 TABLET EVERY DAY BY ORAL ROUTE. 90 Tablet 3 03/09/20 23 Active levothyroxine (SYNTHROID) 50 MCG TabletIndications :Hypothyroidism, unspecified type TAKE ONE (1) TABLET BY MOUTH EACH MORNING ON AN EMPTY STOMACH 90 Tablet 2 07/12/19 24 Active atorvastatin (LIPITOR) 10 MG TabletIndications :Hyperlipidemia, unspecified hyperlipidemia type TAKE ONE (1) TABLET BY MOUTH EVERY NIGHT AT BEDTIME 90 Tablet 1 07/13/19 24 Active carbidopa-levodop a (SINEMET) 25-100 MG Tablet Take 1 Tablet by mouth 3 times daily. 1/2 hour before eating 90 Tablet 3 11/01/19 25 Active tiotropium (SPIRIVA) 18 MCG CapsuleIndication s:Chronic obstructive pulmonary disease, unspecified COPD type (HCC) take 1 Puff by inhalation daily. 90 Capsule 3 08/09/19 23 025 Discontin ued(Alter corie therapy) carbidopa-levodop a (SINEMET) 25-250 MG TabletIndications :Parkinson's disease TAKE 1 TABLET BY MOUTH 3 TIMES DAILY. 90 Tablet 1 10/01/19 025 Discontin ued(Med List Clean Up) Active Problems Problem Noted Date Diagnosed Date [...] and is currently in mild exacerbation. Per NOVELTY WORKER score- patient has 4 points- she is at 0.1 % risk of perioperative mortality Per RCRI score- patient has 0 points, therefore has a class 1 risk- she has 3.9% chances of 30 day risk of major cardiovascular event defined as , [place] or cardiac arrest. HTN (hypertension) 02/02/2021 Overview [...] Encounters Date Type Department Care Team Description 10/31/2024 2:15 PM CDT Office Visit [facility] - Neurology [facility] [address] [place] [address] Jesus Ricks MD Parkinsonian tremor (HCC) (Primary Dx); Chronic obstructive pulmonary disease, unspecified COPD type (HCC) Discharge Disposition: Discharged to home or Selfcare 10/31/2024 Travel from Last 3 Months Immunizations Immunization Administration [...] Used Date Smoking Tobacco: Every Day Cigarettes 1 60.6 Started: 04/10/1964 Smokeless Tobacco: Never Tobacco Cessation:Ready to Q [...] Sign Reading Time Taken Comments Blood Pressure 114/74 10/31/2024 2:01 PM CDT Pulse 84 10/31/2024 2:01 PM CDT Temperature 36.4 C (97.5 F) 10/31/2024 2:01 PM CDT Respiratory Rate 17 10/31/2024 2:01 PM CDT Oxygen Saturation 99% 10/31/2024 2:01 PM CDT Inhaled Oxygen Concentration - - Weight 52 kg (114 lb 9.6 oz) 10/31/2024 2:01 PM CDT Height 160 cm (5' 3) 10/31/2024 2:01 PM CDT Body Mass Index 20.3 10/31/2024 2:01 PM CDT Plan of Treatment Upcoming Encounters Date Type Department Care Team (Late st Contact Info) Description 04/15/2025 2:00 PM ADMISSIONS SUPERVISOR Office Visit [facility] - Neurology [facility] [address] [place] [phone] Jesus Ricks MD [address] [place] [address] Health Maintenance Due Date Last Done Comments DEXA Bone Density 1945 Hepatitis C Virus (HCV) Screening 1945 TdaP Immunization 1945 Lung Cancer Screening 1994 Zoster Immunization (1 of 2) 1994 01/11/2012 SARS-COV-2 Immunization ( season) 2024 01/25/2024, 01/19/2023, 01/21/2022, Additional history exists Influenza Immunization (#1) 12/09/202407/2023, 01/19/2023, 01/26/2022, Additional history exists Pneumococcal Immunization (50+ years) Completed 01/23/2020, 02/26/2016, 03/05/2013 Pneumococcal Immunization Combined Discontinued 01/23/2020, 02/26/2016, 03/05/2013 Respiratory Syncytial Virus (RSV) Immunization (Adult) Completed 03/15/2023 Hepatitis B Immunization Aged Out No longer eligible based on patient's age to complete this topic Human Papillomavirus (HPV) Immunization Aged Out No longer eligible based on patient's age to complete this topic Meningococcal Immunization (ACWY) Aged Out No longer eligible based on patient's age to complete this topic Rotavirus Immunization Aged Out No lo nger eligible based on patient's age to complete this topic Insurance MEDICARE C [employer] Care Teams Behavioral Sciences Department Chair Relationship Specialty Start Date End Date Provider, None [place] PCP - General 10/29/24 Jesus Ricks MD [address] [place] [address] Consulting Physician Neurology 01/24/23
--- OUTSIDE RECORDS SUMMARY | 2024-11-11 14:31 | XMS_ITS | Referral Summary ---
Author Organization [facility] Address [address] [place] [address] Care Team Providers Care Electrical Construction Project Manager Name Role Phone Shruthi Kendrick NP Primary Care Provider [phone] Ania Malik PA Unavailable Allergies Active Allergy [...] and is currently in mild exacerbation. Per SENIOR AUTOMATION ENGINEER score- patient has 4 points- she is at 0.1 % risk of perioperative mortality Per RCRI score- patient has 0 points, therefore has a class 1 risk- she has 3.9% chances of 30 day risk of major cardiovascular event defined as , [place] or cardiac arrest. COPD with exacerbation 02/02/2021 [...] Follow urine culture. Fall 02/01/2021 Parkinson's disease ([facility]) 05/14/2014 Overview (07/14/2016): Parkinson's disease [...] on file Legal Sex Female 11:19 PM INDIRECT FIRE INFANTRYMAN Gender Identity Not on file Sexual Orientation Not on file Last Filed Vital Signs Vital Sign Reading Time Taken Comments Blood Pressure 169/74 03/18/2021 1:24 PM INDIRECT FIRE INFANTRYMAN Pulse 76 03/18/2021 1:24 PM INDIRECT FIRE INFANTRYMAN Temperature 37.1 C (98.8 F) 02/05/2021 11:09 AM CDT Respiratory Rate 20 02/05/2021 11:09 AM CDT Oxygen Saturation 96% 02/05/2021 11:09 AM CDT Inhaled Oxygen Concentration - - Weight 53.5 kg (118 lb) 03/18/2021 1:24 PM INDIRECT FIRE INFANTRYMAN Height 165.1 cm (5' 5) 03/18/2021 1:24 PM INDIRECT FIRE INFANTRYMAN Body Mass Index 19.64 03/18/2021 1:24 PM INDIRECT FIRE INFANTRYMAN Plan of Treatment Not on file Medical Devices Implanted Type Area Senior Product Development Scientist Device Identifier Shelf Expiration Date Model / Serial / Lot [employer] [id number] Self-Centering 45mm 28mm Hip Femur Head Bipolar Sterile Camarena - [id number] Implanted:Qty: 1 on 02/02/2021 by Vladislav Oneil MD at [facility] Right: Hip [employer] 09/07/2025 [id number] / / [id number] [employer] [id number] Actis Collared Hip /14 6 Standard Offset Stem Femoral - [id number] Implanted:Qty: 1 on 02/02/2021 by Vladislav Oneil MD at [facility] Right: Hip [employer] 11/07/2030 [id number] / / [id number] [employer] 1365-12-000 Articul/Wing 28mm Hip +5mm /14 Taper Head Femoral Cocr Sterile Latex Free - [id number] Implanted:Qty: 1 on 02/02/2021 by Vladislav Oneil MD at [facility] Right: Hip [employer] 11/07/2025 1365-12-000 / / [id number] Insurance [employer] MEDICARE ADVANTAGE MEDICARE [facility] PPO Advance Directives For more information, please contact: [phone] * Full Code (Latest Code Status on File) Date Activated Date Inactivated Comments 02/02/2021 9:35 AM 02/05/2021 7:11 PM * Full Code Date Activated Date Inactivated Comments 02/02/2021 9:35 AM 02/02/2021 9:35 AM Care Teams Electrical Construction Project Manager Relationship Specialty Start Date End Date Shruthi Kendrick NP PCP - General Nurse Practitioner 10/30/17 Ania Malik PA [address] [place] [address] [address] [place] [address] Physician Print Producer Orthopedic Surgery 02/05/21
--- OUTSIDE RECORDS SUMMARY | 2024-11-11 14:31 | XMS_ITS | Encounter Summary ---
Author Organization [facility] Address [address] [facility] [place] [address] Phone Care Team Providers Care Perforator Loader Name Role Phone Molina Mccain MD Primary Care Provider [phone] Jesus Ricks MD Unavailable Provider, None Primary Care Provider Unavailabl e Reason for Visit * Reason Comments Medication Refill Encounter Details Date Type Department Care Team (Late st Contact Info) Description 07/13/2023 Refill [facility] - [facility] [address] [place] [address] Molina Mccain MD [address] [place] [address] Medication Refill Social History Tobacco Use Types [...] AM CDT Medication(s) refilled and signed per [facility] Chronic Medication Refill Standing Order for Pediatricand [...] st Contact Info) Description 04/15/2025 2:00 PM POWER TOOL REPAIRER [facility] [address] [place] [address] Jesus Ricks MD [address] [place] [address] documented as of this encounter Visit Diagnoses Diagnosis Hyperlipidemia, unspecified hyperlipidemia type documented in this encounter Care Teams Perforator Loader Relationship Specialty Start Date End Date Molina Mccain MD [address] [place] [address] PCP - General Family Medicine 08/08/22 04/16/24 Provider, None [place] PCP - General 10/29/24 Jesus Ricks MD [address] [place] [address] Consulting Physician Neurology 01/24/23 documented as of this encounter
--- OUTSIDE RECORDS SUMMARY | 2024-11-11 14:31 | XMS_ITS | Encounter Summary ---
Author Organization [facility] Address [address] [facility] [address] Phone Care Team Providers Care Converting Technician Name Role Phone Molina Mccain MD Primary Care Provider Jesus Ricks MD Unavailable Provider, None Primary Care Provider Unavailabl e Reason for Visit * Reason Comments Medication Refill Encounter Details Date Type Department Care Team (Late st Contact Info) Description 01/19/2024 Refill [facility] - [facility] [address] [place] [address] Molina Mccain MD [address] [place] [address] Medication Refill Social History Tobacco Use Types [...] st Contact Info) Description 04/15/2025 2:00 PM HOME VISIT FIELD CARE MANAGER [facility] [address] [place] [address] Jesus Ricks MD [address] [place] [address] documented as of this encounter Visit Diagnoses Diagnosis Hyperlipidemia, unspecified hyperlipidemia type documented in this encounter Care Teams Converting Technician Relationship Specialty Start Date End Date Molina Mccain MD [address] [place] [address] PCP - General Family Medicine 08/08/22 04/16/24 Provider, None [place] PCP - General 10/29/24 Jesus Ricks MD [address] [place] [address] Consulting Physician Neurology 01/24/23 documented as of this encounter
[2024-11-11 19:17] LABS: Alanine Aminotransferase 7 U/L (6-35); Albumin Level 4.4 g/dL (3.5-5.1); Alkaline Phosphatase 105 U/L (38-126); Anion Gap 12 mmol/L (4-12); Aspartate Amino Transferase 42 U/L (14-36); Bilirubin,Total 0.4 mg/dL (0.2-1.3); Blood Urea Nitrogen 15 mg/dL (7-17); Calcium 9.3 mg/dL (8.4-10.2); Carbon Dioxide 25 mmol/L (22-30); Chloride 96 mmol/L (98-107); Cholesterol 143 mg/dL (0-200); Estimated Glomerular Filt Rate 42; Glucose 89 mg/dL (65-110); HDL Direct 42 mg/dL; Potassium 3.5 mmol/L (3.4-5.0); Sodium 133 mmol/L (137-145); Total Protein 8.7 g/dL (6.3-8.2); Triglycerides 138 mg/dL (<150)
[2024-11-11 19:52] LABS: Thyroid Stimulating Hormone 1.710 uIU/mL (0.465-4.680)
== END 2024-11-11 14:18 | disposition home or self-care (01) ==
PROVIDERS: PCP Nurse Practitioner Adult Health; Visit Provider Nurse Practitioner Adult Health
DX: E78.5 Hyperlipidemia, unspecified (principal)
CPT/HCPCS: 36415; 80053; 80061; 84443